=== PATIENT | male | born 1995 | race Caucasian/White ===

== ENCOUNTER 2020-12-11 12:42 | Emergency (ER) | payer OTHER ==
[~2020-12-11] VITALS: Ht 188 cm; Wt 79.4 kg
[~2020-12-11 12:42] MED LIST: KEFLEX500 MG PO; NOHOMEMEDICATIONS
[2020-12-11 13:30] VITALS: BP 118/63
== END 2020-12-11 13:31 | disposition home or self-care (01) ==
LOC: ER 12:42
DX: M25.561 Pain in right knee (principal); R55 Syncope and collapse; X50.1XXA Overexertion from prolonged static or awkward postures, initial encounter; Y93.67 Activity, basketball; Y92.89 Other specified places as the place of occurrence of the external cause; Y99.9 Unspecified external cause status